=== PATIENT | male | born 1995 | race Caucasian/White ===

== ENCOUNTER 2017-10-23 11:18 | Emergency (ER) | payer OTHER ==
[~2017-10-23] VITALS: Ht 185.4 cm; Wt 96.8 kg
[~2017-10-23 11:18] MED LIST: ABILIFY30 MG PO; RITALIN LA40 MG PO; RITALIN10 MG PO; SERTRALINE HCL25 MG; ZOLOFT50 MG PO
[2017-10-23] MEDS ORDERED: CLINDAMYCIN HC150 MG PO (13:13)
[2017-10-23] MEDS ORDERED: TRAMADOL HCL50 MG PO (13:13)
[2017-10-23 13:32] VITALS: BP 118/64
== END 2017-10-23 13:33 | disposition home or self-care (01) ==
LOC: EME 11:18
DX: K08.89 Other specified disorders of teeth and supporting structures (principal); Z88.0 Allergy status to penicillin; Z88.8 Allergy status to other drugs, medicaments and biological substances
CPT/HCPCS: 99281; 99283